=== PATIENT | male | born 1985 | race Two or more races ===

== ENCOUNTER 2023-05-27 17:00 | Emergency (ER) | payer OTHER ==
[~2023-05-27] VITALS: Ht 180.3 cm; Wt 97.7 kg
[2023-05-27 17:12] VITALS: BP 118/64; O2SAT 98
[2023-05-27] MEDS ORDERED: ACET-2708 MT (21:52)
[2023-05-27 22:07] VITALS: PULSE 100; RESP 16; TEMP 98.3
== END 2023-05-27 22:08 | disposition home or self-care (01) ==
LOC: ER 19:16
DX: S92.002A Unspecified fracture of left calcaneus, initial encounter for closed fracture (principal); W22.8XXA Striking against or struck by other objects, initial encounter; Y93.89 Activity, other specified; Y92.89 Other specified places as the place of occurrence of the external cause; Y99.8 Other external cause status
CPT/HCPCS: 73630; 29515; 99283; Z7610